=== PATIENT | female | born 2005 | race Caucasian/White ===

== ENCOUNTER 2024-09-15 06:14 | Day surgery (SDC) | payer BC, SELFPAY ==
[2024-09-15] VITALS (9 sets, daily range): BP systolic 100–124; BP diastolic 60–79; PULSE 67–86; RESP 14–16; TEMP 36.6; O2SAT 100; BMI 19.7
--- OUTSIDE RECORDS SUMMARY | 2024-09-15 06:17 | XMS_ITS | Continuity of Care Document ---
Author Organization [facility] is Address [address] [place] [id number]- Care Team Providers Care Proofreader Name Role Phone Inés Tompkins Primary Care Physician [phone] [facility] Encounter [facility] Date(s): 08/07/21 - 08/07/[address] [address]- Encounter Diagnosis Major depressive disorder, recurrent episode, severe(Discharge Diagnosis) - 08/07/21 History of suicidal ideation(Discharge Diagnosis) - 08/07/21 Discharge Disposition: Home/Self Care Attending Physician: Erika Chamberlain Admitting Physician: Erika Chamberlain Referring Physician: Not Known , Provider Allergies, Adverse Reactions, Alerts Substance Reaction Severity Status Benzoyl Peroxide Swelling Itch Chemical burn Severe Active Medications adapalene 0.3% topical gel 0 Refill(s) Start Date: 08/07/21 Status: Ordered CEFUROxime 250 mg oral tablet 250 mg = 1 TABLET PO BID X 7 Days, 0 Refill(s), Acute Start Date: 08/07/21 Stop Date: 08/14/21 Status: Ordered Effexor XR 37.5 mg oral capsule, extended release 37.5 mg = 1 CAP PO QDay, # 30 CAP, 0 Refill(s), Maintenance Start Date: 08/07/21 Stop Date: 09/06/21 Status: Ordered ferrous fumarate 325 mg (106 mg elemental iron) oral tablet 325 mg PO QDay, 0 Refill(s), Maintenance Start Date: 08/07/21 Status: Ordered sulfacetamide sodium 10% topical cream 0 Refill(s) Start Date: 08/07/21 Status: Ordered Problem List Condition Effective Dates Status Health Status Inform ant Major depressive disorder, r ecurrent episode, severe(Confirmed) Active patie nt Vital Signs Most recent to oldest [Reference Range]: 1 Chief Complaint suicidal ideation, d epression, anxiety (08/07/21 9:47 AM) Vital Signs/Pain Comments Mom reported t hat patient has had a history of Tachycardia. Family history of Cardiovascular conditions. (08/07/21 10:42 AM) Temperature Oral [36-37.6 DegC] 36.8 Deg C (08/07/21 10:42 AM) Pulse Rate [55-90 bpm] 84 bpm (08/07/21 10:42 AM) Respiratory Rate [12-16 br/min] 16 br/mi n (08/07/21 10:42 AM) Blood Pressure [90-138/45-84 mm Hg] 106/ 67mm Hg (08/07/21 10:42 AM) BP Cuff Site RUE (08/07/21 10:42 AM) Concerns about Pain No (08/07/21 10:42 AM) Height 160 cm (08/07/21 10:42 AM) Height Method Stadiometer (08/07/21 10:42 AM) Weight 51.60 kg (08/07/21 10:42 AM) DOSING WEIGHT 51.600 kg (08/07/21 10:42 AM) Simpson Body Weight 53.43 kg 1 (08/07/21 10:42 AM) Simpson Body Weight Percentage 97.00 % 2 (08/07/21 10:42 AM) BSA 1.514 m2 (08/07/21 10:42 AM) Body Mass Index 20.2 kg/m2 (08/07/21 10:42 AM) BMI Percentile 40.93 % 3 (08/07/21 10:42 AM) 1Result Comment: Automatically calculated as a result of charting a height of 160 cm. 2Result Comment: Automatically calculated as a result of charting a height of 160 cm. 3Result Comment: Automatically calculated as a result of charting a BMI of 20.2 Care Team Personnel Name: Inés Tompkins MD Address: [facility] [address] [place], [place] [address] Name: [facility] Address: [facility] [address] [place], [place] [address]
[2024-09-15] MEDS: LIDOCAINE 1%-EPI 1:100,000 20 ML INFILTRATI (06:49)
[2024-09-15] MEDS: ETHYL CHLORIDE 1 APPLICATION 1 APPLIC TOPICAL (07:10)
[2024-09-15] MEDS: BUPIVACAINE 0.5% 30 ML INJECTION (07:10)
--- NOTE | 2024-09-15 07:36 | P.ORPRC_ITS ---
Procedure Note Date of procedure: 09/15/24 Procedure: PREOPERATIVE DIAGNOSIS: 1. Right long finger volar aspect proximal digital crease benign cyst POSTOPERATIVE DIAGNOSIS: 1. Right long finger volar aspect proximal digital crease benign cyst PROCEDURE: 1. Right long finger volar aspect benign cyst open excision SURGEON: Yang Redmond MD. [employer] WORKER: KATINA Vargas - Of note, an medical billing assistant was critical for this case to aid in patient positioning, tissue retraction, limb manipulation/positioning, and closure. ANESTHESIA: Local anesthetic (50:50 mixture of 1% lidocaine plain and 0.5% marcaine plain) IMPLANTS: None TOURNIQUET: None COMPLICATIONS: None evident INDICATIONS: The patient is a pleasant 19-year-old female who has experienced right long finger volar retinacular cyst near the proximal digital crease with increasing sized to the cyst as well as associated pain that has progressively gotten worse. Nonoperative management has been tried but unsuccessful. Given the failure of nonoperative management, and how this affects daily life, surgery was recommended. DESCRIPTION OF PROCEDURE: Following a thorough discussion of risks, benefits, and alternatives consent was obtained and the operative extremity was marked. The patient was brought to the operating room and placed supine on the operating table. No antibiotics were administered as this was planned to be a local case only. Proper time-out was performed identifying proper patient, site, and procedure. The operative extremity was prepped and draped in the appropriate sterile fashion using ChloraPrep. The limb was exsanguinated and the tourniquet inflated. A Tye type incision was made along the volar aspect of the long finger centered at the proximal digital crease radially. Full-thickness skin flap was elevated bluntly after the sharp skin incision. This volar cyst was identified laying on top of/superficial to the flexor tendon sheath. It appeared the stem from the A1 key distal aspect. We were able to remove the cyst completely without rupture, although it did look to be very consistent with a ganglion cyst/retinacular cyst. It measured approximately 10 x 10 x 5 mm and was clear in color. Thorough irrigation normal saline was performed. Closure was performed with 4-O nylon. Soft dressings were applied, and the patient was awoken/transferred to the recovery room in stable condition. PLAN: 1. Encourage elevation of the operative extremity. 2. Range of motion of the operative extremity/digits as tolerated. 3. Ibuprofen, acetaminophen and/or oxycodone as needed for pain. 4. Follow up with PA visit in 12-16 days for wound check and suture removal.
== END 2024-09-15 08:03 | disposition home or self-care (01) ==
LOC: OR 06:15
PROVIDERS: PCP Family Medicine; Visit Provider Orthopaedic Surgery Sports Medicine
PROC: (CPT 26160; principal; 2024-09-15 07:15)
DX: M67.441 Ganglion, right hand (principal)
CPT/HCPCS: 26160; 88304; J0665

== ENCOUNTER 2025-03-14 13:51 | Outpatient (CLI) | payer BC, SELFPAY ==
[2025-03-14 23:20] LABS: Chlamydia DNA Amplified* NOT DETECTED (No Detected); GC DNA Amplified* NOT DETECTED (No Detected)
== END 2025-03-14 13:52 | disposition home or self-care (01) ==
LOC: NFLDUCREF 13:52
PROVIDERS: PCP Family Medicine; Visit Provider Physician Assistant Surgical
DX: N89.8 Other specified noninflammatory disorders of vagina (principal); Z11.3 Encounter for screening for infections with a predominantly sexual mode of transmission
CPT/HCPCS: 87491; 87591